=== PATIENT | female | born 1940 | race Caucasian/White ===

== ENCOUNTER 2016-11-16 00:26 | Inpatient (IN) | payer OTHER ==
[~2016-11-16] VITALS: Ht 154.9 cm; Wt 55.6 kg
[~2016-11-16 00:26] MED LIST: ABILIFY2 M1 PO; CEL20 PO; MECLIZINE HCL12.5 MG PO; METFORMIN HCL1000 MG PO; TOR10 PO
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
--- NOTE | 2016-11-16 00:57 | NUR ---
PT UNABLE TO PROVIDE URINE AT THIS TIME.
--- NOTE | 2016-11-16 01:04 | NUR ---
LAB AT BEDSIDE FOR LAB DRAW.
--- NOTE | 2016-11-16 01:13 | NUR ---
EKG IN PROGRESS AT BEDSIDE.
--- NOTE | 2016-11-16 01:23 | NUR ---
PT AAOX4, SPEAKING WITH ANOTHER PT. RESP EVEN AND UNLABORED. WILL CONTINUE TO MONITOR.
[2016-11-16 01:24] LABS: BASOPHIL % 0.2 % (0-2); PLATELET COUNT 243 x10^3mcL (130-400); RED CELL DISTRIBUTION WIDTH 13.2 % (11.5-14.5)
[2016-11-16 01:32] LABS: CARBON DIOXIDE 28.4 mmol/L (21-32); CHLORIDE SERUM 101 mmol/L (98-107); CREATININE SERUM 1.1 mg/dL (0.6-1.0); GLUCOSE SERUM 131 mg/dL (74-106); POTASSIUM SERUM 3.9 mmol/L (3.5-5.1); SODIUM SERUM 138 mmol/L (136-145)
--- NOTE | 2016-11-16 01:40 | NUR ---
PT REFUSED IV AND [address] HERRERA MADE AWARE.
[2016-11-16 01:42] LABS: ALBUMIN 3.6 g/dL (3.4-5.0); ALKALINE PHOSPHATASE 84 U/L (46-116); ALT/SGPT 19 U/L (14-59); AST/SGOT 18 U/L (15-37); BILIRUBIN TOTAL 0.2 mg/dL (0.20-1.00); T4(THYROXINE) 6.3 ug/dL (4.7-13.3); TOTAL PROTEIN, SERUM 6.9 g/dL (6.4-8.2)
--- NOTE | 2016-11-16 01:44 | NUR ---
PT AMBULATED TO THE RESTROOM WITH URINE SPECIMEN CONTAINER.
--- NOTE | 2016-11-16 02:00 | NUR ---
GAVE REPORT TO THAD MICHEL TO ASSUME CARE.
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
[2016-11-16 02:17] VITALS: BP 186/85
[2016-11-16 02:25] LABS: microscopic required? YES; urine erythrocyte TRACE (NEGATIVE)
[2016-11-16 02:29] LABS: AMPHETAMINE QUAL UR NONE DETECTED (NEG <=1000)
--- NOTE | 2016-11-16 02:30 | NUR ---
DR LEAL AND MYSELF IN ROOM. DR LEAL ASSESSING PT. INFORMED HIM PT REFUSES IV ACCESS. DR LEAL ASKED PT IF WE CAN INSERT AN IV; PT SAID NOT AT THIS TIME.
[2016-11-16 02:45] VITALS: BP 168/68
[2016-11-16 02:54] LABS: CHOLESTEROL/HDL RATIO 2.6
[2016-11-16 03:14] VITALS: BP 166/75
--- NOTE | 2016-11-16 03:15 | NUR ---
PT NO C/O LUQ PAIN AT THIS TIME.
[2016-11-16] MEDS ORDERED: GLUCOPHAGE XR500 MG PO (03:34)
[2016-11-16] MEDS ORDERED: GLUCOTROL5 MG PO (03:37)
[2016-11-16] MEDS ORDERED: MEMANTINE HCL5 MG PO (03:37)
--- NOTE | 2016-11-16 04:08 | NUR ---
PT ALLOWING TO HAVE IV ACCESS. IV INITIATED IN THE LF WRIST, [address] GHOSH MADE AWARE. WILL CONTINUE TO MONITOR.
[2016-11-16] MEDS ORDERED: ARIPIPRAZOLE2 MG PO (04:29)
[2016-11-16] MEDS ORDERED: MECLIZINE HYD12.5 MG PO (04:30)
--- NOTE | 2016-11-16 04:44 | NUR ---
PT SLEEPING. NO DISTRESS NOTED. WILL CONTINUE TO MONITOR.
[2016-11-16 05:15] VITALS: BP 158/80
--- NOTE | 2016-11-16 06:46 | NUR ---
PT AWAKE. NO DISTRESS NOTED. PT WORRIED ABOUT WHERE HER SON IS. WILL CONTINUE TO MONITOR.
--- NOTE | 2016-11-16 08:00 | NUR ---
ALERT AND ORIENTED. VERY FORGETFUL. WORRIED ABOUT HER SON TALI. BREATHING FREELY ON RA. TELE # 33 NSR. NS INFUSING 100 CC TO RT WRIST. PT IS NOT ON SCD'S SHE GETS UP OUT OF BED FREQUENTLY WITHOUT CALLING FOR ASSIST. BED ALARM ON. FALL RISK. DENIES PAIN AT THIS TIME. CALL LIGHT WITHIN REACH.
[2016-11-16 16:33] VITALS: BP 143/87; BP 177/93
--- NOTE | 2016-11-16 16:43 | NUR ---
INFORMED DR. PHILLIPS RE: BP 177/93. WILL CONTINUE TO MONITOR.
--- NOTE | 2016-11-16 18:21 | NUR ---
PT SEEN BY DR. ALLEN. PT IS GRAVELY DISABLED AND UNABLE TO TAKE CARE OF HERSELF. SS WILL LOOK FOR PLACEMENT. PT HAS BEEN WANTING TO GO HOME ALL DAY. HER SON CALLED HER WHICH MADE HER FEEL MUCH BETTER. SHE IS MUCH MORE RELAXED. IV HL'D. INDEPENDENT W ADL'S. BREATHING FREELY ON RA. CONTINUES ON CIPRO PO.
--- NOTE | 2016-11-16 19:30 | NUR ---
PT SITTING UP IN BED, A/O X2. PT IS FORGETFUL AND MAY BE CONFUSED AT TIMES. ON TELE #33, NSR, DENIES CHEST PAIN. PULSES PALPABLE, NO EDEMA NOTED. LUNG SOUNDS CTA, BREATHING FREELY ON RA, DENIES SOB. BOWEL SOUNDS ACTIVE, PT REPORTS LAST BM WAS TODAY, REGULAR. PT DENIES PAIN UPON URINATION. PT HAS GENERALIZED WEAKNESS. SKIN IS INTACT, ECCHYMOSIS NOTED TO RUE AND LEFT THIGH. PT DENIES PAIN AT THIS TIME. SALINE LOCK TO LEFT WRIST, PATENT AND INTACT. BED IN LOWEST SETTING, SIDE RAILS UP X2, CALL LIGHT WITHIN REACH. WILL CONTINUE TO MONITOR.
[2016-11-16 22:05] VITALS: BP 169/80
[2016-11-17 00:47] VITALS: BP 154/77
[2016-11-17 05:52] VITALS: BP 148/76
--- NOTE | 2016-11-17 07:05 | NUR ---
PT SLEPT AT INTERVALS THROUGHOUT THE NIGHT AND HAD MULTIPLE EPISODES OF FORGETFULNESS AND CONFUSION. PT DENIES PAIN OR SOB AT THIS TIME. SALINE LOCK TO LEFT WRIST, PATENT AND INTACT. WILL ENDORSE CARE TO AM NURSE.
--- NOTE | 2016-11-17 08:00 | NUR ---
ALERT AND ORIENTED X 2. LUNG SOUNDS CLEAR, BREATHING FREELY ON RA,. SL TO LEFT WRIST PATENT. TELE # 33 NSR. POOR APPETITE WITH BREAKFAST. SAID SHE WAS HAVING NAUSEA. WHEN OFFERED MED FOR NAUSEA SHE DENIED HAVING ANY NAUSEA. DENIES ANY PAIN. EXPRESSES DESIRE TO GO HOME. CALL LIGHT WITHIN REACH.
--- NOTE | 2016-11-17 08:30 | NUR ---
PTS SON EKATERINA AND DTR IN LAW CAME TO CK ON PT. EKATERINA DID NOT GO IN TO SEE PT DTR IN LAW FERNANDA DID GO IN FOR A VISIT.
[2016-11-17 09:24] VITALS: BP 154/73
--- NOTE | 2016-11-17 09:59 | NUR ---
PTS SONS OLDEST EKATERINA MILLER-[phone], ADRI KARINA-[phone],YOUNGEST TALI KARINA [phone].
--- NOTE | 2016-11-17 10:00 | NUR ---
TALI PTS YOUNGEST SON CAME TO VISIT WITH PT.
[2016-11-17 14:41] VITALS: BP 157/61
[2016-11-17 16:30] VITALS: BP 168/83
--- NOTE | 2016-11-17 19:00 | NUR ---
REMAINS VERY CONFUSED. SANDY CESAR SPENT ALOT OF TIME WITH PT TODAY. NEW ORDER FOR NORVAS TO START IN AM FOR HTN. NO C/O PAIN OTHER THAN H/A TODAY. SL TO LFT WRIST. SUPERVISION ONLY WITH ACTIVITIES AND BRP. COOPERATIVE WITH CARE. CALL LIGHT WITHIN REACH.
--- NOTE | 2016-11-17 19:45 | NUR ---
RECEIVED REPORT FROM AM NURSE. PT A/O X2 AND CONTINUES TO HAVE EPISODES OF CONFUSION AND FORGETFULNESS. TELE #33, NSR, DENIES CP. PULSES PALPABLE, NO EDEMA NOTED. SCDs AT BEDSIDE. LUNGS SOUNDS CTA, BREATHING FREELY ON RA, DENIES SOB. PT REPORTS LAST BM-11/17/16, FORMED. PT DENIES N/V. BRP, VOIDS FREELY, DENIES PAIN UPON URINATION. GENERALIZED WEAKNESS. SKIN IS INTACT WITH ECCHYMOSIS NOTED TO RUE AND LEFT THIGH. SALINE LOCK TO LEFT WRIST, INTACT AND FLUSHES WELL. PT DENIES PAIN AT THIS TIME. BED IN LOWEST, SIDE RAILS UP X2. BED ALARM ON. CALL LIGHT PLACED WITHIN REACH. WILL CONTINUE TO MONITOR.
[2016-11-17 21:04] VITALS: BP 155/83
--- NOTE | 2016-11-18 01:24 | NUR ---
PT IS NOW MED-SURG. RETURNED TELE #33 TO CHILD DEVELOPMENT INSTRUCTOR. ASSISTED PT TO AND FROM BATHROOM. PT DENIES ANY PAIN OR SOB AT THIS TIME. WILL CONTINUE TO MONITOR.
[2016-11-18 06:36] LABS: BASOPHIL % 0.3 % (0-2); PLATELET COUNT 227 x10^3mcL (130-400); RED CELL DISTRIBUTION WIDTH 12.8 % (11.5-14.5)
[2016-11-18 06:55] LABS: CALCIUM 9.3 mg/dL (8.5-10.1); CARBON DIOXIDE 27.3 mmol/L (21-32); CHLORIDE SERUM 102 mmol/L (98-107); GLUCOSE SERUM 135 mg/dL (74-106); POTASSIUM SERUM 4.4 mmol/L (3.5-5.1); SODIUM SERUM 138 mmol/L (136-145)
--- NOTE | 2016-11-18 07:05 | NUR ---
PT SLEPT WELL THROUGHOUT THE NIGHT. NO SIGNS OF DISTRESS NOTED. PT HAD NO COMPLAINTS OF PAIN. ALL NEEDS MET. CARE ENDORSED TO AM NURSE.
--- NOTE | 2016-11-18 08:00 | NUR ---
ALERT AND ORIENTED TO SELF AND PLACE. VERY FORGETFUL AND CONFUSED. INDEPENDENT WITH BRP. GETS UP FREQUENTLY TO BR AND WALKS AROUND ROOM.SL TO LEFT WRIST PATENT. APPETITE VARIES. CALM,PLEASANT. COOPERATIVE WITH CARE. COMBING OUT HER HAIR. CALL LIGHT WITHIN REACH.
[2016-11-18 09:19] VITALS: BP 161/82
--- NOTE | 2016-11-18 13:10 | NUR ---
DTR IN LAW FERNANDA [phone], DTR ELVIS [phone].
[2016-11-18 17:37] VITALS: BP 134/74
--- NOTE | 2016-11-18 18:52 | NUR ---
ALERT AND ORIENTED. CONTINUES TO BE CONFUSED AND FORGETFUL. FAMILY CAME TO VISIT. INDEPENDENT W ADL'S. CONTINUES ON CIPRO PO. STARTED ON NORVASC. WAITING FOR ASSISTED LIVING PLACEMENT FOR PT.
--- NOTE | 2016-11-18 19:30 | NUR ---
PT A/O X2, WITH EPISODES OF CONFUSION AND FORGETFULNESS. MED-SURG, NO TELE. PULSES PALPABLE, NO EDEMA. LUNG SOUNDS CTA, DENIES SOB, BREATHING ON RA. ABD SOFT AND FLAT, PT REPORTS LAST BM WAS TODAY. BRP WITHOUT ASSIST. PT IS AMBULATORY WITH STEADY GAIT. DENIES PAIN, ADMITS TO SOME NAUSEA, BUT DECLINES MEDICAITONS AT THIS TME. SALINE LOCK TO LEFT WRIST IS PATENT AND INTACT. BED IN LOWEST SETTING, SIDE RAILS UP X2, CALL LIGHT WITHIN REACH. WILL CONTINUE TO MONITOR.
[2016-11-18 22:14] VITALS: BP 150/74
[2016-11-19 06:15] VITALS: BP 131/71
--- NOTE | 2016-11-19 06:21 | NUR ---
PT SLEPT VERY WELL THROUGHOUT THE NIGHT. NO RESPIRATORY DISTRESS NOTED, NO SIGNS OF PAIN OBSERVED. ALL NEEDS MET. SALINE LOCK TO LEFT WRIST, PATENT AND INTACT. WILL ENDORSE CARE TO AM NURSE.
[2016-11-19 08:00] VITALS: BP 143/87
--- NOTE | 2016-11-19 08:00 | NUR ---
RECIEVED PATIENT ALERT AND ORIENTED TIMES TWO. PATIENT IS A LITTLE CONFUSED AND HAS REFUSED SOME OF HER MEDICATIONS OFFERED. PATIENT HAS CLEAR BREATH SOUNDS AND IS FULLY AMBULATORY. THE IV IS DISCONNECTED AND SHE REFUSED THE VITAMINS, ALZHIEMERS MEDICATION AND THE AMBILIFY. SHE STATES SHE BELIEVES IT MAKES HER SICK. VITALS AT THIS TIME AT 98.7, 81, 16, 143/87, 96%. PATIENTS BLOOD SUGAR THIS AM AT 135, AND TERRY JIMENEZ NOTED LABS OF PTT AT 47.5, AIC AT 6.6, AND UA WITH MANY BACTERIA. INOCENCIO TAHS OZZIE OF PYLONEPHRITIS, ANEMIA, DYLIPIDEMIA A, HTNM AND DMOOC. PATIENT FAMILY IS UNABLE TO CARE FOR HER AND A PLN FOR DISCHARGFE OT ASSISTED LIVING IS IN PLACE. PATIENT AHS TOLERATE THE RGULAR DIET AND HAS BEEN ON THE PHONE ALL MORNING. SHE WANTS TO GO HOME.
--- NOTE | 2016-11-19 12:05 | NUR ---
PATIENT SEEN BY THE INTERNS AND ADVSIED THE PATIENT IS REFUSING SOME OF HER MEDICAIONS. DR ARE AWARE SHE HAS REFUSED MEDICATION PREVIOULY AND THE FAMUILY ARE CONCERNED SHE IS A DENGER TO BE ON HER OWN. AWAITING ANY ARRANGEMENT PLANS AT THIS TIME.
--- NOTE | 2016-11-19 12:16 | NUR ---
PATIENT IS WITH 163 BLOOD SUGAR AT THIS TIME. GAVE 3 UNITS OF REGULAR ORDERED.
[2016-11-19 14:00] VITALS: BP 166/95
--- NOTE | 2016-11-19 14:31 | NUR ---
PATIENT HAS MAKDE MULTIPLE ATTEMPTS TO CALL FAMILY BY PHONE. SHE IS ANXIOUS AND WANTS TO GO HOME. SHE IS STILL CONFUSED ABOUT PLAN OF CARE.
--- NOTE | 2016-11-19 15:41 | NUR ---
PATIENT GIVEN ATIVAN FOR ANXIETY. PATIENT GIVEN CIPRO BUT PATIENT PALMED IT AND ENCOURAGED TO TAKE THE MEDICAIONS.
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
[2016-11-19 18:10] VITALS: BP 149/99
--- NOTE | 2016-11-19 19:37 | NUR ---
RECIVED PATIENT IN BED AWAKE,ALERT, CONFUSED AND FORGETFUL WITH NO SIGN OF ACUTE DISTRESS NOTED. MED SURG PATIENT REFUSED IV AND SCD AND MOST OF HER MEDICATION, MD AWARE PER AM RN. BREATHING EASYA ND NONLABOR. IV HEPLOCK TO LEFT WRIST. WILL CONTINUE TO MONITOR.
[2016-11-19 21:03] VITALS: BP 155/92
--- NOTE | 2016-11-20 01:36 | NUR ---
SLEEPING THIS TIME WITH NO SIGN OF DISTRESS NOTED, BREATHING EASY AND NON LABOR. WILL CONTINUE TO MONITOR.
--- NOTE | 2016-11-20 05:02 | NUR ---
SLEPT AT LONG INTERVALS DENIES PAIN AND DISCOMFORT THE ENTIRE SHIFT. CHECKED AT INTERVALS FOR NEEDS AND SAFETY.
[2016-11-20 05:36] VITALS: BP 147/69
--- NOTE | 2016-11-20 07:15 | NUR ---
PT REST ON BED, ALERT, ORINED X 2. PT BREATHING ON RA, EVEN, UNLABORED. IV SITE SALINE LOCK AT THIS TIME.
[2016-11-20 07:50] VITALS: BP 144/83
--- NOTE | 2016-11-20 15:14 | NUR ---
Initial Nutrition Assessment Dx: Metabolic Encephalopathy, Dementia, UTI PMHx: Type 2 DM, HTN, dementia PSHx: Cholecystectomy Labs: (11/18) WBC 4.4 L, BG 135 H; (11/16) A1C 6.6 H Meds: Cipro, Colace, D10, folic acid, Glucophage, Glucotrol, humulin R, protonix, vitamin B1, NS IV, zofran Current Diet Order: CCHO-60 gm PO Intakes: (11/20) B: 0% (Pt refused); (11/18) B: 20%, L: 85%; (11/17) B: 20% Ht: 61", 5' 1". Wt: 5.17 lb, 2.35 kg - Likely Error Weight as reported per RN/CAN (Weighed pt on bedscale): 123 lb, 56 kg. BMI: 23.2 kg/m2 (Normal) IBW: 105 lb, 48 kg. %IBW: 117%. UBW: Pt unable to recall Age: 76 Y/O F Food Allergies: Skin: Ecchymosis RUE, L thigh. Jordan 20. Edema: None GI: Active bowel sounds. Last BM 11/18. Pt found with metabolic encephalopathy secondary to Alzheimer's dementia exacerbation vs pyelonephritis per doctor's notes. Per doctor's progress note 11/19, per nursing, pt was calm overnight, pending placement for detention care, family actively looking for site, however, refuses to take pt home, case management actively assisting. Pt confused at times, forgetful, anxious per nursing notes. Pt was not in bed during RD visit, found in hallways. Pt was moved to another room 205-A. Pt reported no nausea today, eating "okay". RD offered snacks in between meals, pt declined, stated she is fine, however, in the end agreeable to half a roast beef sandwich now. Per RN, stated that pt did not eat much due to complain of nausea, however, refusing to take nausea medications. RD notified RN regarding weight error, RN provided correct weight. Problem with: N: None. V: None. D: None. C: None. Problems with: Chewing: None. Swallowing: None. Current Appetite: Fair to Poor Recent Weight Change: Pt reports some weight loss, however, unable to recall. % Weight Change: N/A Vitamin/Supplement use: None Diet at Home: Regular Physical Activity: None Education: Not appropriate for education due to forgetfulness and confusion Estimated Nutritional Needs Based CBW 123 lb, 56 kg. Energy: 4876-2070 kcal/day (25-30 kcal/kg for Maintenance) Protein: 56 gm/day (1 gm/kg for Maintenance) Fluids: 1680 ml/day (30 ml/kg for Maintenance) or per doctor Nutrition Diagnosis Inadequate oral intakes related to psychological causes secondary to Alzheimer's dementia as evidenced by fair to poor PO intakes 0-85% x4 meals, average 31% Intervention 1. Continue CCHO-60 gm diet per doctor. 2. Encourage PO intakes during meals. Monitor/Evaluate Goal: PO intakes to meet at least 50-75% of estimated needs Monitor: PO intakes/tolerance, labs, skin integrity, GI function, weights F/U in 3-5 days as MODERATE risk (11/23-11/25)
--- NOTE | 2016-11-20 16:37 | NUR ---
PT'S SON AT BED SIDE TALKED TO DR. RDZ AND CASE MANAGE.
[2016-11-20 18:13] VITALS: BP 149/71
--- NOTE | 2016-11-20 19:13 | NUR ---
PT IS VERY ANXIOUS, ANTIVAN GIVEN. PT NO COMPLAIN OF PAIN AT THIS TIME. PT PRESENTED VERY FORGETFUL THOUGH DAY. PT BREATHING ON RA, EVEN, UNLABORED. IV SITE PATENT, INTACT. REMAIN SALINE LOCK AT THIS TIME.
--- NOTE | 2016-11-20 19:53 | NUR ---
RECEIVED PATIENT SITTING ON BEDSIDE AWAKE, ALERT, FORGETFUL WITH PERIODS OF CONFUSION. NO SIGN OF ACUTE DISTRESS NOTED. IV TO LEFT WRIST HEPLOCK, PREVIOUSLY REFUSED IV AND SOME OF HER PO MEDS AWARE. WILL CONTINUE TO MONITOR. CALL LIGHT WITHIN REACH.
[2016-11-20 22:36] VITALS: BP 187/77
--- NOTE | 2016-11-20 23:42 | NUR ---
SLEEPING THIS TIME BREATHING EASYA ND NONLABOR. WILL CONTINUE TO MONITOR.
--- NOTE | 2016-11-21 05:07 | NUR ---
SLEPT AT LONG INTERVALS, DENIES PAIN AND DISCOMFORT THE ENTIRE SHIFT, ALL NEEDS ATTENDED.
[2016-11-21 06:23] VITALS: BP 134/87
--- NOTE | 2016-11-21 08:45 | NUR ---
PT ALERT AND ORIENTED X2, CONFUSED. S1 AND S2 HEARD ON AUSCULTATION. PULSES PRESENT, NO EDEMA NOTED, CAP REFILL <3 SEC. LUNG SOUNDS CLEAR, BREATHING UNLABORED. BOWEL SOUNDS ACTIVE, LBM 11/21/16. REPORTS NO PROBLEMS VOIDING. AMBULATES TO RSTROOM. SKIN DRY AND INTACT, BRUISING NOTED TO RUE AND L. THIGH. REPORTS NO PAIN AT THIS TIME. IV SITE CLEAR AND INTACT.
[2016-11-21 09:05] VITALS: BP 149/78
--- NOTE | 2016-11-21 10:29 | NUR ---
JORDAN IN LAW AT BED SIDE, DAUGHTER IN LAW REPORTED PATIENT IS NOT HER USUAL SELF, THINKS THAT EVERYONE IS OUT TO GET HER.
--- NOTE | 2016-11-21 13:43 | NUR ---
PT RESTING IN BED NO SIGNS OF DISTRESS CALL LIGHT IN REACH WILL CONTINUE TO MONITOR.
--- NOTE | 2016-11-21 13:47 | NUR ---
REPORTED H/A 10/13. GIVEN TYLENOL. PATIENT CALM AND NO DISTRESS NOTED.
--- NOTE | 2016-11-21 16:21 | NUR ---
PT CRYING IN ROOM, STATED SHE IS TRYING TO TALK TO HER SON BUT CANNOT REACH HIM. HAS CALLED HIM A FEW TIMES WITH NO ANSWER. STATED SHE WANTS TO TALK TO HER SON BECAUSE SHE IS GOING THROUGH A HARD TIME RIGHT NOW.
--- NOTE | 2016-11-21 18:11 | NUR ---
PT SITTING UP IN BED, FAMILY AT BEDISDE. NO SIGNS OF DISTRESS. CALL LIGHT IN REACH WILL CONTINUE TO MONITOR.
--- NOTE | 2016-11-21 20:01 | NUR ---
PT ALERT AND AWAKE. AOX2. VERBAL WITH CLEAR SPEECH. NO S/S OF RESPIRATORY DISTRESS NOTED. LUNGS CLEAR BILATERALLY. ABDOMEN SOFT AND FLAT. BOWEL SOUNDS ACTIVE. SKIN WARM AND DRY. NO EDEMA NOTED. PULSES PALPABLE. DENIES ANY PAIN. DENIES ANY BURNING WITH URINATION. NO S/S OF DISTRESS NOTED. RESTING COMFORTABLY WITH RELAXED FACIAL FEATURES. CALL LIGHT WITHIN REACH. WILL CONTINUE TO MONITOR.
--- NOTE | 2016-11-21 20:45 | NUR ---
PT REFUSED NEW IV REINSERTION. STATES, "I DON'T NEED IT." NO S/S OF DISTRESS OR DISCOMFORT NOTED AT THIS TIME. RECEIVED ROUTINE MEDICATIONS AND SWALLOWED WITHOUT DIFFICULTY. RESTING WITH RELAXED FACIAL FEATURES. CALL LIGHT WITHIN REACH. WILL CONTINUE TO MONITOR. DR. HGOSH NOTIFIED AND AWARE PT'S REFUSAL OF IV REINSERT AND IV FLUIDS.
[2016-11-21 21:56] VITALS: BP 166/84
--- NOTE | 2016-11-22 00:19 | NUR ---
PT RESTING IN BED WITH EYES CLOSED. BREATHING EQUAL AND UNLABORED. NO S/S OF RESPIRATORY DISTRESS NOTED. RESTING COMFORTABLY WITH RELAXED FACIAL FEATURES. CALL LIGHT WITHIN REACH. WILL CONTINUE TO MONITOR.
[2016-11-22 05:59] VITALS: BP 123/67
--- NOTE | 2016-11-22 07:30 | NUR ---
PT AO X2 ORIENTED TO PERSON AND , PT APREHENSIVE WITH CARE, VERBALIZING PARANOID THOUGHTS. EVEN UNLABORED RESPIRATIONS. BRP, STEADY GAIT. SKIN IS INTACT. DENIES PAIN AT THIS TIME. PT REFUSES IV. CALL LIGHT IN REACH WILL CONTINUE TO MONITOR.
[2016-11-22 10:30] VITALS: BP 127/70
--- NOTE | 2016-11-22 11:32 | NUR ---
PT RESTING IN BED WATCHING TV, EVEN UNLABORED RESPIRATIONS NO SIGNS OF DISTRESS CALL LIGHT IN REACH WILL CONTINUE TO MONITOR.
--- NOTE | 2016-11-22 12:25 | NUR ---
BLOODS SUGAR WAS 67 GAVE PT ORANGE JUICE WITH 2 SUGAR PACKETS AND CRACKERS, WILL ONTINUE TO MONITOR.
--- NOTE | 2016-11-22 14:03 | NUR ---
[facility]. PT IS AWAKE ALERT AND ORIENTED X3. NO SIGNS OF DISTRESS CALL LIGHT IN REACH. [facility] ONTINUE TO MONITOR.
[2016-11-22 17:16] VITALS: BP 142/70
--- NOTE | 2016-11-22 17:35 | NUR ---
PT RESTING IN BED NO SIGNS OF DISTRESS CALL LIGHT IN REACH. PTS MOOD APPROPRIATE TO SITUATION. WILL CONTINUE TO MONITOR.
--- NOTE | 2016-11-22 19:30 | NUR ---
PT AWAKE AND ALERT. AOX2. VERBAL WITH CLEAR SPEECH. NO S/S OF RESPIRATORY DISTRESS NOTED. LUNGS CLEAR BILATERALLY. BOWEL SOUNDS ACTIVE. ABD SOFT AND FLAT. SKIN WARM AND DRY. NO EDEMA NOTED. PULSES PALPABLE. DENIES ANY PAIN AT THIS TIME. DENIES ANY BURNING WITH URINATION. CALM AND COOPERATIVE AT THIS TIME. CALL LIGHT WITHIN REACH. WILL CONTINUE TO MONITOR.
[2016-11-22 20:48] VITALS: BP 110/90; BP 153/86
--- NOTE | 2016-11-23 00:45 | NUR ---
PT RESTING IN BED WITH EYES CLOSED. NO S/S OF RESPIRATORY DISTRESS NOTED. BREATHING EQUAL AND UNLABORED. NO S/S OF DISTRESS OR DISCOMFORT NOTED. CALL LIGHT WITHIN REACH. WILL CONTINUE TO MONITOR.
[2016-11-23 05:10] VITALS: BP 150/79
--- NOTE | 2016-11-23 07:15 | NUR ---
RECEIVED PT IN BED, A/A/O X 1 (PERSON, UNABLE TO REMEMBER ACTUAL LOCATION, VERY FORGETFUL). PT DENIES PAIN OF ANY SORT AT THIS TIME. BILATERAL RADIAL AND PEDAL PULSES PRESENT, NO EDEMA. BILATERAL UPPER AND LOWER LUNG SOUNDS CLEAR, CHEST RISING EVENLY, NO RESPIRATORY DISTRESS. 02 SAT 96% ON R/A. BOWEL SOUNDS NORMOACTIVE ON ALL 4 QUADS, ABD FLAT, SOFT, NON-TENDER. LAST BM 11/22/16. VOIDS FREELY. NO GAIT OR BALANCE IMPAIRMENT UPON AMBULATION. INTACT ECCHYMOSIS ON RUE AND LEFT THIGH. PT DOES NOT HAVE ANY IV LINES PRESENT. BILATERAL SIDE RAILS UP, BED IN LOW POSITION, CALL LIGHT WITHIN REACH. WILL CONTINUE TO MONITOR.
--- NOTE | 2016-11-23 08:02 | NUR ---
DR MARTINEZ, RESIDENTS, CHARGE NURSE, AND ASSIGNED NURSE CAME IN TO SEE PT; DISCUSSED CARE PLAN WITH RESIDENT; ALL QUESTIONS WERE ANSWERED; PT VERBALIZED UNDERSTANDING.
[2016-11-23 09:00] VITALS: BP 123/74
--- NOTE | 2016-11-23 09:50 | NUR ---
PT WAS GIVEN HER PO MEDS. PT IS VERY SUSPICIOUS TO WHAT MEDICATIONS SHE IS RECEIVING. GAVE HER A LIST OF HER MEDICATIONS AT TIME OF ADMINISTRATION, OPENED PACKAGES IN FRONT OF HER. BEFORE TAKING, SHE PAUSES, AND ASKS WHAT THEY ARE AGAIN. LATER ON, STATES THAT SHE WANTS TO SPEAK TO A DOOR CLAMPER INSTEAD TO HAVE MEDS CONFIRMED. THAD WOODY, CAME IN TO TALK TO HER AND CONFIRM THE MEDICATIONS. SHE THEN TOOK IT BY MOUTH, NO DYSPHAGIA NOTED. WILL CONTINUE TO MONITOR.
[2016-11-23 11:29] VITALS: BP 156/80
[2016-11-23 17:15] VITALS: BP 162/86
--- NOTE | 2016-11-23 17:26 | NUR ---
DR GOODRICH PAGED RE: PT'S ELEVATED BP. PT ASYMPTOMATIC AT THIS TIME, STATES THAT SHE FEELS ANXIOUS. INSTRUCTED PT TO LAY DOWN AND REST FOR NOW. LAST BP 162/86, MAP 97. AWAITING ORDER FROM . WILL CONTINUE TO MONITOR.
--- NOTE | 2016-11-23 18:27 | NUR ---
PT RESTING COMFORTABLY ON HER BED, WATCHING TV. NO RESPIRATORY DISTRESS, PAIN, OR DISCOMFORT. SIDE RAILS UP X 2, BED IN LOW POSITION, CALL LIGHT WITHIN REACH. WILL ENDORSE TO NOC SHIFT.
--- NOTE | 2016-11-23 18:48 | NUR ---
PT STATES THAT SHE FEELS ANXIOUS. PT GIVEN ATIVAN 0.5MG PO. WILL CONTINUE TO MONITOR.
--- NOTE | 2016-11-23 21:31 | NUR ---
Awake and verbally responsive. No resp.distress noted on room air. Denies pain at this time. Out of bed and ambulating inside the room, fixing the bed and looking out at the door. Very suspicious of the nursing staff and the meds she's taking. Approached in a calm and unhurried manner and explained the purpose of the meds she's taking. Due meds given and taken. Accucheck done. Will cont.to monitor. Call light kept within reach.
[2016-11-23 21:44] VITALS: BP 147/86
--- NOTE | 2016-11-24 04:00 | NUR ---
Afebrile. No significant change in condition noted. Denies pain. Slept well. In no apparent distress.
[2016-11-24 05:54] VITALS: BP 122/76
--- NOTE | 2016-11-24 07:40 | NUR ---
RECEIVED PT IN BED, A/A/O X 2 (PERSON, GENERAL PLACE). PT IS VERY FORGETFUL. BILATERAL RADIAL AND PEDAL PULSES PRESENT, NO EDEMA, CAP REFILL < 3 SECS. PT ON ROOM AIR, O2 SAT 98%. BILATERAL UPPER AND LOWER LUNGS CLEAR, CHEST RISING EVENLY. ABD FLAT, SOFT, NONTENDER. NORMOACTIVE BOWEL SOUNDS X 4 QUADS. VOIDS FREELY. AMBULATES WITHOUT GAIT OR BALANCE IMPAIRMENT. HAS ECCHYMOSIS TO RUE. DENIES PAIN AT THIS TIME. PT DOES NOT HAVE ANY IV SITE (REFUSED). PT REMAINS SUSPICIOUS OF ANYTHING OFFERED TO HER, SUCH HER FOOD, ANY PROCEDURE OR MEDICATION. SIDE RAILS UP X 2, BED IN LOW POSITION, CALL LIGHT WITHIN REACH. WILL CONTINUE TO MONITOR.
--- NOTE | 2016-11-24 08:50 | NUR ---
DR BLAIR, RESIDENTS, CHARGE NURSE, AND ASSIGNED NURSE CAME IN TO SEE PT; SON BY BEDSIDE; MD DISCUSSED CARE PLAN WITH PT; PT VERBALIZED UNDERSTANDING.
[2016-11-24 09:31] VITALS: BP 127/67
[2016-11-24 10:54] VITALS: Ht 154.9 cm; Wt 55.6 kg
--- NOTE | 2016-11-24 11:54 | NUR ---
PT'S RBS = 63; PT STATES SHE FEELS "NERVOUS". PT WAS GIVEN OJ AND JELLO FOR SNACK. REPORTED TO DR GOODRICH; STATED THAT HE WILL MAKE ADJUSTMENTS TO PT'S MEDICATIONS, AND TO RECHECK BS IN 1 HOUR.
--- NOTE | 2016-11-24 12:00 | NUR ---
PT SITTING BY FOOT OF THE BED, TALKING TO HER DAUGHTER BY BEDSIDE. NO RESPIRATORY DISTRESS, PAIN, OR DISCOMFORT. BED IN LOW POSITION, CALL LIGHT WITHIN REACH. WILL CONTINUE TO MONITOR.
--- NOTE | 2016-11-24 12:15 | NUR ---
RECHECK BLOOD SUGAR NOW 75MG. PT REPORTS "FEELS BETTER, WAS REALLY HUNGRY." REVIEWED IMPORTANCE OF EATING AT MEAL TIME TO PREVENT HYPOGLYCEMIC REACTION. VERBALIZED UNDERSTANDING BUT NEEDS FREQUENT REINFORCEMENT. FAMILY AT BEDSIDE. AMBULATES WELL.
[2016-11-24 17:20] VITALS: BP 154/79
--- NOTE | 2016-11-24 18:16 | NUR ---
PT ON EDGE OF HER BED, SITTING, PUTTING HER MAKE UP ON. A/A/O X 2 (PERSON, GENERAL PLACE). NO RESPIRATORY DISTRESS, PAIN, OR DISCOMFORT. BED IN LOW POSITION. CALL LIGHT WITHIN REACH. WILL ENDORSE TO NOC SHIFT.
--- NOTE | 2016-11-24 19:25 | NUR ---
RECEIVED PATIENT SITTING AT BEDSIDE AWAKE, ALERT WITH NO SIGN OF ACUTE DISTRESS NOTED. MED SURG PATIENT . CLEAR BS TO AUSCULTATION SATTING AT 98% RA. IV HEPLOCK. WILL CONTINUE TO MONITOR. CALL LIGHT WITHIN REACH.
[2016-11-24 21:27] VITALS: BP 138/72
--- NOTE | 2016-11-25 00:06 | NUR ---
SLEEPING THIS TIME, BREATHINGE ASY AND NONLABOR. WILL CONTINUE TO MONITOR.
--- NOTE | 2016-11-25 05:16 | NUR ---
SLEPT FAIRLY NO SIGN OF DISTRESS NOTED THE ENTIRE SHIFT, REMAINED CALM AND COOPERATIVE WITH CARE.
[2016-11-25 06:24] VITALS: BP 144/78
--- NOTE | 2016-11-25 07:35 | NUR ---
RECEIVED THE PATIENT AWAKE AND ORIENTED TO PERSON, PLACE AND WITH SOME FORGETFULNESS. THE PATIENT DENIED ANY SHORTNESS OF BREATH OR PAIN. NO IV ACCESS NOTED. PATIENT AMBULATED IN THE ROOM WITH SLOW BUT STEADY GAIT.
[2016-11-25 09:30] VITALS: BP 129/67
[2016-11-25 17:26] VITALS: BP 146/78
--- NOTE | 2016-11-25 18:47 | NUR ---
THE PATIENT AMBULATED WITH STEADY GAIT. PATIENT HAD EPISODES OF CONFUSION DURING THE SHIFT. ALSO, PATIENT C/O EPISODES OF ANXIETY; COMFORT HAS BEEN PROVIDED TO THE PATIENT.
--- NOTE | 2016-11-25 19:34 | NUR ---
RECEIVED PATIENT WATCHING TELEVISION WITH NO SIGN OF ACUTE DISTRESS. NO SIGN SIGN OF CONFUSION THIS TIME. BREATHING EASY AND NONLABOR. PATIENT REFUSED IV AND SOME OF HER DUE MEDICATION , MD AWARE. WILL CONTINUE TO MONITOR. CALL LIGHT WITHIN REACH.
[2016-11-25 20:23] VITALS: BP 128/81
--- NOTE | 2016-11-26 01:58 | NUR ---
SLEEPING WITH NO SIGN OF DISTRESS NOTED. BREATHING EASY AND NONLABOR.
--- NOTE | 2016-11-26 05:12 | NUR ---
SLEPT AT LONG INTERVALS DENIES PAINA ND DISCOMFORT THE ENTIRE SHIFT. ALL NEEDS ATTENDED.
[2016-11-26 05:25] VITALS: BP 149/75
--- NOTE | 2016-11-26 08:07 | NUR ---
PT IS A+OX2, FORGETFUL, DENIES PAIN, SOB, HEADACHE, AND NAUSEA, PULSES MODERATE AND EQUAL ROCAEL, NO EDEMA PRESENT, BOWEL SOUNDS ACTIVE, VOIDING, AMBULATORY, ECCHYMOSIS RUE, REFUSED IV AND FLUIDS.
[2016-11-26 09:00] VITALS: BP 135/74
--- NOTE | 2016-11-26 11:39 | NUR ---
Follow Up Nutrition Assessment Dx: Metabolic Encephalopathy, Dementia, UTI PMHx: Type 2 DM, HTN, dementia Labs: Noted no new labs; (11/18) WBC 4.4 L, BG 135 H; (11/16) A1C 6.6 H Meds: Colace, D10, Glucophage, Glucotrol, humulin R, protonix, NS IV, zofran Current Diet Order: CCHO-60 gm PO Intakes: (11/25) D: 80%; (11/25) B: 60%, L: 70%; (11/24) B: 50%, L: 80%, D: 90% -- Noted improvement since last RD visit Weights: (11/20) Bed Scale Wt: 123 lb, 56 kg Skin: Ecchymosis RUE. Jordan 22. Edema: None GI: Active bowel sounds. Last BM 11/24. Current Appetite: Good - Noted improvement since last RD visit. Problem with: N: None. V: None. D: None. C: None. Per doctor's progress note 11/25, no new labs, images, studies, no acute events overnight, still pending placement at an appropriate care facility, no update from CM yet; Pt with metabolic encephalopathy secondary to Alzheimer's dementia exacerbation. Noted pt is confused at times per nursing notes. RD met up with pt at bedside, pt reported good PO intakes, no issues. RD noted a bag of sugar-free cookies at bedside (95 kcal for 11 cookies). Pt inquired regarding cookies, RD stated okay to have cookies, however, educated pt on DM diet and outside foods, encouraged pt to fill out menus and request for snacks in between meals if needed, so that dietary staff can better honor pt's needs. Pt acknowledged and verbalizes understanding. Estimated Nutritional Needs Based CBW 123 lb, 56 kg. Energy: 4105-2403 kcal/day (25-30 kcal/kg for Maintenance) Protein: 56 gm/day (1 gm/kg for Maintenance) Fluids: 1680 ml/day (30 ml/kg for Maintenance) or per doctor Nutrition Diagnosis Inadequate oral intakes related to psychological causes secondary to Alzheimer's dementia as evidenced by fair to poor PO intakes 0-85% x4 meals, average 31% -- Improved, Good PO intakes 50-90% Intervention 1. Continue CCHO-60 gm diet per doctor. Monitor/Evaluate Goal: PO intakes to meet >75% of estimated needs Previous Goal: PO intakes to meet at least 50-75% of estimated needs - Met, improved Monitor: PO intakes/tolerance, labs, skin integrity, GI function, weights F/U in 7 days as LOW risk (12/03)
[2016-11-26 12:00] VITALS: BP 149/74
--- NOTE | 2016-11-26 12:02 | NUR ---
PT COMPLAINING OF ANXIETY, ATIVAN GIVEN.
--- NOTE | 2016-11-26 13:21 | NUR ---
PT AMBULATING IN ROOM, NO RESPIRATORY DISTRESS NOTED, DENIES PAIN, NAUSEA, SOB, AND HEADACHE, REQUESTING A DIFFERENT LUNCH TRAY.
--- NOTE | 2016-11-26 14:52 | NUR ---
PT RESTING IN BED, NO RESPIRATORY DISTRESS NOTED, DENIES PAIN, NAUSEA, SOB, AND HEADACHE.
--- NOTE | 2016-11-26 15:57 | NUR ---
PT RESTING IN BED, NO RESPIRATORY DISTRESS NOTED, DENIES PAIN, NAUSEA, SOB, AND HEADACHE.
--- NOTE | 2016-11-26 19:14 | NUR ---
DISCHARGE INSTRUCTIONS GIVEN TO PT AND PT'S SON AND [id number] INCLUDING MEDICAL FOLLOW-UP WITH PCP. PT AND PT'S FAMILY VERBALIZE UNDERSTANDING. PT TO BE WHEELED DOWN BY JAISON CROCKETT.
== END 2016-11-26 19:11 | disposition home or self-care (01) | DRG 42 ==
LOC: ED 00:26 → DU 01:34 → MU 01:34 → DU 01:34 → MU 11-18 02:31
PROVIDERS: Emergency Medicine; Student in an Organized Health Care Education/Training Program; ADMIT Family Medicine
DX: G30.9 Alzheimer's disease, unspecified (principal); N17.0 Acute kidney failure with tubular necrosis; G93.41 Metabolic encephalopathy; E11.51 Type 2 diabetes mellitus with diabetic peripheral angiopathy without gangrene; D68.69 Other thrombophilia; E11.59 Type 2 diabetes mellitus with other circulatory complications; F02.80 Dementia in other diseases classified elsewhere, unspecified severity, without behavioral disturbance, psychotic disturbance, mood disturbance, and anxiety; E11.65 Type 2 diabetes mellitus with hyperglycemia; E86.0 Dehydration; I10 Essential (primary) hypertension; E03.9 Hypothyroidism, unspecified; D63.8 Anemia in other chronic diseases classified elsewhere; E78.5 Hyperlipidemia, unspecified; Z68.23 Body mass index [BMI] 23.0-23.9, adult; Z79.84 Long term (current) use of oral hypoglycemic drugs
CPT/HCPCS: 82962; 83880; C9113; G0480; J2405; J7030; J8597; Q0092

== ENCOUNTER 2016-12-05 17:50 | Observation (INO) | payer OTHER, MEDICAID ==
[~2016-12-05] VITALS: Ht 154.9 cm; Wt 62.2 kg
[~2016-12-05 17:50] MED LIST changes: +ARIPIPRAZOLE2 MG PO; +GLUCOPHAGE XR500 MG PO; +GLUCOTROL5 MG PO; +MECLIZINE HYD12.5 MG PO; +MEMANTINE HCL5 MG PO
[2016-12-05 18:35] LABS: UA SPECIFIC GRAVITY <=1.005 (1.005-1.035); microscopic required? YES; urine erythrocyte 1+ (NEGATIVE)
[2016-12-05 18:44] LABS: AMPHETAMINE QUAL UR NONE DETECTED (NEG <=1000)
[2016-12-05 19:00] LABS: BASOPHIL % 0.1 % (0-2); PLATELET COUNT 259 x10^3mcL (130-400); RED CELL DISTRIBUTION WIDTH 12.9 % (11.5-14.5)
--- NOTE | 2016-12-05 19:07 | NUR ---
PT MEDICATED PER MD ORDERS
[2016-12-05 19:11] LABS: CALCIUM 9.2 mg/dL (8.5-10.1); CARBON DIOXIDE 28.9 mmol/L (21-32); CHLORIDE SERUM 100 mmol/L (98-107); CREATININE SERUM 0.9 mg/dL (0.6-1.0); GLUCOSE SERUM 120 mg/dL (74-106); POTASSIUM SERUM 3.9 mmol/L (3.5-5.1); SODIUM SERUM 136 mmol/L (136-145)
--- NOTE | 2016-12-05 19:20 | NUR ---
REC'D CRITICAL LAB RESULT PTT, INFORMED PRIMARY NURSE SHARMIN
[2016-12-05 19:24] LABS: ALBUMIN 3.6 g/dL (3.4-5.0); ALKALINE PHOSPHATASE 97 U/L (46-116); ALT/SGPT 40 U/L (14-59); AMYLASE 76 U/L (25-115); AST/SGOT 22 U/L (15-37); BILIRUBIN TOTAL 0.3 mg/dL (0.20-1.00); CHOLESTEROL 175 mg/dL (<200); HDL CHOLESTEROL 64 mg/dL (40-60); LIPASE 222 IU/L (73-393); MAGNESIUM 1.8 mg/dL (1.8-2.4); T4(THYROXINE) 7.9 ug/dL (4.7-13.3); TOTAL PROTEIN, SERUM 7.1 g/dL (6.4-8.2)
--- NOTE | 2016-12-05 19:34 | NUR ---
RECEIVED PT FROM TRIAGE FOR DIZZINESS AND ETOH. PT IS SLOW TO ANSER QUESTION AND IS CONFUSED WHY SHE IS HERE. PT SHOWS NO SIGNS OF ACUTE DISTRESS. WILL CONTINUE TO MONITOR.
[2016-12-05 21:02] LABS: CHOLESTEROL/HDL RATIO 2.9; PHOSPHOROUS 3.8 mg/dL (2.5-4.9)
[2016-12-05 21:10] LABS: FREE T4 0.94 ng/dL (0.76-1.46); FREE THYROXINE INDEX 2.4 ug/dL (1.4-4.5); T3 TOTAL 0.86 ng/mL
--- NOTE | 2016-12-05 21:22 | NUR ---
REORT GIVEN TO THAD SALAZAR. ALL QUESTION AND CONCERNS ADDRESSED AT THIS TIME
--- NOTE | 2016-12-05 21:26 | NUR ---
RECEIVED PT FROM ED VIA FRANCESCO OSBORNE (PERSON, PLACE AND BIRTHDATE). ABLE TO FOLLOW SIMPLE COMMANDS. SPEECH IS CLEAR. NO SOB NOTED. DENIES CHEST PAIN/PRESSURE, NSR ON THE MONITOR. DENIES ABDOMINAL DISCOMFORT. IV SITE PATENT AND INTACT ON THE LAC. SIDE RAILS UPX2. CALL LIGHT ON REACH. ENDORSED
[2016-12-05 21:35] VITALS: BP 155/75
[2016-12-05 21:42] VITALS: Ht 154.9 cm; Wt 62.2 kg
[2016-12-06] VITALS (10 sets, daily range): BP systolic 114–172; BP diastolic 61–81
--- NOTE | 2016-12-06 06:33 | NUR ---
PT HAD A RESTING NIGHT AT THIS TIME AND WILL CONTINUE TO MONITOR.WILL CONTINUE TO MONITOR.
--- NOTE | 2016-12-06 07:45 | NUR ---
PATIENT AOX2, DENIES HEADACHE, SPEECH CLEAR, CONFUSED AT TIMES. TELE 20, DENIES CP. LUNGS CTA, NO RESP DISTRESS NOTED ON RA. BOWEL SOUNDS ACTIVE, DENIES ANY GI DISCOMFORT. SKIN INTACT. DENIES ANY PAIN. IV ACCESS TO LW, SITE WNL. CALL LIGHT WITHIN REACH.
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
--- NOTE | 2016-12-06 17:58 | NUR ---
PATIENT NOW REQUESTING MEDICATION FOR ANXIETY, ATIVAN GIVEN. WILL CONT TO MONITOR.
--- NOTE | 2016-12-06 18:40 | NUR ---
BP ELEVATED AND RECHECKED. DR TEMPLE PAGE GATED. PATIENT STATES FEELING ANXIOUS. WILL CONT TO MONITOR AND ENDORSE TO NOC NURSE.
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
--- NOTE | 2016-12-06 21:27 | NUR ---
SCHEDULED MEDS ADMINISTERED THIS TIME, PATIENT INFORMED ABOUT EACH MEDS ACTIONS AND PURPOSE PRIOR, TOOK MEDS WITHOUT DIFF.
--- NOTE | 2016-12-06 22:31 | NUR ---
DR STOCK INFORMED ABOUT PATIENT REFUSING IVF.
[2016-12-07] VITALS (7 sets, daily range): BP systolic 106–169; BP diastolic 61–86
--- NOTE | 2016-12-07 | NUR ---
ROUNDS MADE PATIENT SLEEPING AND RESTING QUIETLY THIS TIME, AWAKEN WHEN NAME CALLED. OFFERED NO COMPLAINTS. CALM AND COOPERATIVE. SAFETY/FALL PREC. MAINTAINED. BED ALARM ON. WILL CONTINUE TO MONITOR.
[2016-12-07 00:14] LABS: BASOPHIL % 0.3 % (0-2); PLATELET COUNT 212 x10^3mcL (130-400); RED CELL DISTRIBUTION WIDTH 13.3 % (11.5-14.5)
[2016-12-07 00:30] LABS: CARBON DIOXIDE 29.8 mmol/L (21-32); CHLORIDE SERUM 102 mmol/L (98-107); CREATININE SERUM 0.9 mg/dL (0.6-1.0); GLUCOSE SERUM 111 mg/dL (74-106); POTASSIUM SERUM 3.9 mmol/L (3.5-5.1); SODIUM SERUM 138 mmol/L (136-145)
--- NOTE | 2016-12-07 06:23 | NUR ---
PATIENT SLEPT OFF AND ON DURING THE SHITF, HAD BEEN WONDERING IN HALLWAY DURING THE SHIFT, RE DIRECTED BACK TO ROOM,CONFUSED AND DISORIENTED,PATIENT GET PARANOID AT TIMES. CONSTANTLT MONITOR. SAFETY/FALL PRECAUTION MAINTAINED. REFUSED IVF DR STOCK AWARE. HEPLOCK TO LEFT HAND PATENT AND INTACT.WILL ENDORSE CONTINUITY OF CARE TO INCOMING NURSE.
--- NOTE | 2016-12-07 07:15 | NUR ---
BEDSIDE REPORT AND INTRODUCTION PERFORMED WITH INCOMING NURSE ALEC.
[2016-12-07 07:22] LABS: BASOPHIL % 0.3 % (0-2); PLATELET COUNT 222 x10^3mcL (130-400); RED CELL DISTRIBUTION WIDTH 13.1 % (11.5-14.5)
[2016-12-07 07:37] LABS: CALCIUM 9.1 mg/dL (8.5-10.1); CARBON DIOXIDE 27.2 mmol/L (21-32); CHLORIDE SERUM 101 mmol/L (98-107); CREATININE SERUM 0.9 mg/dL (0.6-1.0); GLUCOSE SERUM 121 mg/dL (74-106); POTASSIUM SERUM 3.6 mmol/L (3.5-5.1); SODIUM SERUM 137 mmol/L (136-145)
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
--- NOTE | 2016-12-07 14:18 | NUR ---
PATIENT PER CHARGE HAS NOT YET BEEN SEEN BY PSYCHOLOGIST TODAY. PATIENT IS TO BE SEEN THOUGH DISCUSSED IN THE ROUNDS THIS AM. WILL ADVISE THE HOSPITAL INSURANCE CLERK INDICATED.
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
--- NOTE | 2016-12-07 19:43 | NUR ---
PATIENT RECEIVED IN BED AWAKE, ALERT AND ORIENTED TO NAME AND PLACE, CONFUSED OF PURPOSE OF HER HOSP STAY AND WHY SHE IS HERE, DISORIENTED AT TIMES, OCC ANSWERS QUESTIONS INAPPROPRIATELY, SPEECH CLEAR,MOOD TENSE AND ANXIOUS, 1;1 SITTER AT BEDSIDE FOR PATIENT SAFETY, OCC SEEN PACING INSIDE ROOM AND ALONG THE HALLWAY LOOKING CONFUSED AND DISORIENTED.NO RESP. DISTRESS, BREATHING EVEN AND UNLABORED,ON RA SAT 98%. DENIES CHEST PAINS, HR=78BPM, RHYTHM REGULAR, TELE#20, NSR. HEPLOCK TO LEFT HAND INTACT.LAST BM 8-07-20, PATIENT STATES APPETITE IS FAIR. SAFETY/FALL PRECAUTIONS MAINTAINED. WILL CONTINUE TO MONITOR.
--- NOTE | 2016-12-07 20:28 | NUR ---
ATIVAN 1 MG PO GIVEN FOR ANXIETY. PATIENT VERY APPRECIATIVE.
--- NOTE | 2016-12-07 22:06 | NUR ---
PATIENT CHECKED THIS TIME, SLEEPING BUT EASILY AWAKEN, DIAPHORETIC, BS CHECKED WAS 122, BR=[id number], HR=72, TEMP=99.2.
--- NOTE | 2016-12-07 22:27 | NUR ---
DR STOCK TALKED TO PATIENT REGARDING TRANSFER TO [facility].
--- NOTE | 2016-12-07 22:43 | NUR ---
CALLED KARINA MANZO TO INFORMED ABOUT PATIENT TO BE TRANSFERED TO [facility], REQUESTED TO TALK TO , GAVE PHONE NUMBER TO DR STOCK AND TALKED TO [place] AND PER DR STOCK THEY ARE AGREEABLE TO THE TRANSFER TO [facility].
--- NOTE | 2016-12-07 22:46 | NUR ---
DR STOCK ORDER ATIVAN 1 MG IX DOSE FOR ANXIETY AND APRESOLINE 10 MG FOR OF=113/77, HR=78. ORDER CARRIED OUT.
[2016-12-07] MEDS ORDERED: DIOVAN HCT1 TA3 PO (23:12)
--- NOTE | 2016-12-07 23:31 | NUR ---
REPORT GIVEN TO EMERSON-RN AT [facility], ALSO GIVEN REPORT TO RORO DURAN EMT/[facility]. PATIENT READY TO BE TRANSFERED WITH [facility]. TRANSPORTED VIA [facility] THIS TIME. PK=[id number], HR=72BPM.
== END 2016-12-07 23:35 | DRG 56 ==
LOC: ED 17:50 → DU 20:14
PROVIDERS: Emergency Medicine; ADMIT Family Medicine
DX: G30.9 Alzheimer's disease, unspecified (principal); N17.0 Acute kidney failure with tubular necrosis; G93.41 Metabolic encephalopathy; I16.1 Hypertensive emergency; F02.80 Dementia in other diseases classified elsewhere, unspecified severity, without behavioral disturbance, psychotic disturbance, mood disturbance, and anxiety; R31.9 Hematuria, unspecified; E11.65 Type 2 diabetes mellitus with hyperglycemia; D63.8 Anemia in other chronic diseases classified elsewhere; E78.5 Hyperlipidemia, unspecified; F10.20 Alcohol dependence, uncomplicated; F32.9 Major depressive disorder, single episode, unspecified; E66.3 Overweight; Z68.26 Body mass index [BMI] 26.0-26.9, adult; Z79.84 Long term (current) use of oral hypoglycemic drugs
CPT/HCPCS: 82962; 83880; 84439; G0378; G0480; J0360; J3411; J3475; J3490; J7030; Q0092

== ENCOUNTER 2017-04-21 14:28 | Emergency (ER) | payer OTHER, MEDICAID ==
[~2017-04-21] VITALS: Ht 160 cm; Wt 58.0 kg
[~2017-04-21 14:28] MED LIST changes: +DIOVAN HCT1 TA3 PO
[2017-04-21 17:09] LABS: UA SPECIFIC GRAVITY 1.025 (1.005-1.035); microscopic required? YES; urine erythrocyte 2+ (NEGATIVE)
[2017-04-21 18:01] VITALS: BP 138/68
== END 2017-04-21 18:01 | disposition home or self-care (01) ==
LOC: ED 14:28
PROVIDERS: Emergency Medicine
DX: N39.0 Urinary tract infection, site not specified (principal); J06.9 Acute upper respiratory infection, unspecified; I10 Essential (primary) hypertension; E11.9 Type 2 diabetes mellitus without complications; Z88.5 Allergy status to narcotic agent

== ENCOUNTER 2017-04-24 00:52 | Emergency (ER) | payer OTHER, MEDICAID ==
[~2017-04-24] VITALS: Ht 157.5 cm; Wt 61.2 kg
[2017-04-24 01:02] VITALS: Ht 157.5 cm; Wt 61.2 kg
[2017-04-24 03:18] LABS: BASOPHIL % 0.7 % (0-2); PLATELET COUNT 207 x10^3mcL (130-400); RED CELL DISTRIBUTION WIDTH 12.2 % (11.5-14.5)
[2017-04-24 03:23] LABS: CALCIUM 8.7 mg/dL (8.5-10.1); CARBON DIOXIDE 27.6 mmol/L (21-32); CHLORIDE SERUM 92 mmol/L (98-107); GLUCOSE SERUM 169 mg/dL (74-106); POTASSIUM SERUM 3.1 mmol/L (3.5-5.1); SODIUM SERUM 131 mmol/L (136-145)
[2017-04-24 03:28] LABS: ALBUMIN 3.4 g/dL (3.4-5.0); ALKALINE PHOSPHATASE 55 U/L (46-116); ALT/SGPT 21 U/L (14-59); AST/SGOT 29 U/L (15-37); BILIRUBIN TOTAL 0.44 mg/dL (0.20-1.00)
[2017-04-24 05:56] LABS: UA SPECIFIC GRAVITY >=1.030 (1.005-1.035); microscopic required? YES; urine erythrocyte NEGATIVE (NEGATIVE)
[2017-04-24 08:33] VITALS: BP 130/72
== END 2017-04-24 08:32 | disposition home or self-care (01) ==
LOC: ED 00:52
PROVIDERS: Emergency Medicine
DX: E87.6 Hypokalemia (principal); E11.9 Type 2 diabetes mellitus without complications; I10 Essential (primary) hypertension; Z88.5 Allergy status to narcotic agent
CPT/HCPCS: 36415; Q0162

== ENCOUNTER 2017-04-26 09:05 | Inpatient (IN) | payer OTHER, MEDICAID ==
[~2017-04-26] VITALS: Ht 157.5 cm; Wt 56.4 kg
[2017-04-26 09:16] VITALS: Ht 157.5 cm; Wt 56.4 kg
[2017-04-26 10:02] LABS: CALCIUM 8.9 mg/dL (8.5-10.1); CARBON DIOXIDE 26.3 mmol/L (21-32); CHLORIDE SERUM 90 mmol/L (98-107); CREATININE SERUM 0.9 mg/dL (0.6-1.0); GLUCOSE SERUM 129 mg/dL (74-106); POTASSIUM SERUM 4.3 mmol/L (3.5-5.1); SODIUM SERUM 128 mmol/L (136-145)
[2017-04-26 11:07] LABS: ALBUMIN 3.4 g/dL (3.4-5.0); BILIRUBIN DIRECT 0.24 mg/dL (0.0-0.2); BILIRUBIN TOTAL 0.69 mg/dL (0.20-1.00); TOTAL PROTEIN, SERUM 7.2 g/dL (6.4-8.2)
[2017-04-26 11:08] LABS: BASOPHIL % 0.4 % (0-2); PLATELET COUNT 177 x10^3mcL (130-400)
[2017-04-26 12:18] VITALS: BP 150/71
[2017-04-26 12:52] LABS: CHOLESTEROL/HDL RATIO 3.3; MAGNESIUM 1.6 mg/dL (1.8-2.4); PHOSPHOROUS 3.2 mg/dL (2.5-4.9)
[2017-04-26 13:15] LABS: T3 TOTAL 0.64 ng/mL
[2017-04-26 16:57] LABS: FREE T4 1.21 ng/dL (0.76-1.46); FREE THYROXINE INDEX 3.6 ug/dL (1.4-4.5); T4(THYROXINE) 10.3 ug/dL (4.7-13.3)
[2017-04-26 17:57] VITALS: BP 143/71
[2017-04-26 20:20] VITALS: BP 114/65
[2017-04-27 04:18] VITALS: BP 108/63
[2017-04-27 04:19] VITALS: BP 108/63
[2017-04-27 06:55] LABS: PLATELET COUNT 142 x10^3mcL (130-400); RED CELL DISTRIBUTION WIDTH 13.1 % (11.5-14.5)
[2017-04-27 07:14] LABS: CALCIUM 8.1 mg/dL (8.5-10.1); CARBON DIOXIDE 20.4 mmol/L (21-32); CHLORIDE SERUM 98 mmol/L (98-107); CREATININE SERUM 0.9 mg/dL (0.6-1.0); GLUCOSE SERUM 102 mg/dL (74-106); MAGNESIUM 1.7 mg/dL (1.8-2.4); PHOSPHOROUS 3.6 mg/dL (2.5-4.9); POTASSIUM SERUM 3.8 mmol/L (3.5-5.1); SODIUM SERUM 133 mmol/L (136-145)
[2017-04-27 09:19] LABS: BAND NEUTROPHIL 2 % (0-10); BASOPHIL 0 % (0-2); MONOCYTE 8 % (0-7); SEGMENTED NEUTROPHILS 64 % (37-75)
[2017-04-27 09:20] LABS: PLATELET MORPHOLOGY PLATELETS NORMAL; rbc morphology (normal/abnorm) ABNORMAL (NORMAL)
[2017-04-27 09:21] LABS: ovalocyte/elliptocyte 1+
[2017-04-27 10:07] VITALS: BP 124/59
[2017-04-27 13:36] VITALS: BP 133/62
[2017-04-27 18:06] VITALS: BP 142/72
[2017-04-27 21:26] VITALS: BP 142/67
[2017-04-28 04:55] VITALS: BP 148/70
[2017-04-28 06:35] LABS: BASOPHIL % 0.2 % (0-2); PLATELET COUNT 147 x10^3mcL (130-400); RED CELL DISTRIBUTION WIDTH 12.9 % (11.5-14.5)
[2017-04-28 06:49] LABS: CALCIUM 8.3 mg/dL (8.5-10.1); CARBON DIOXIDE 20.2 mmol/L (21-32); CHLORIDE SERUM 103 mmol/L (98-107); CREATININE SERUM 0.7 mg/dL (0.6-1.0); GLUCOSE SERUM 154 mg/dL (74-106); POTASSIUM SERUM 3.7 mmol/L (3.5-5.1); SODIUM SERUM 136 mmol/L (136-145)
[2017-04-28 10:40] VITALS: BP 152/64
[2017-04-28] MEDS ORDERED: KEFLEX500 M1 PO (11:05)
[2017-04-28] MEDS ORDERED: LAC PO (11:06)
[2017-04-28] MEDS ORDERED: MEDDP PO (11:06)
[2017-04-28 11:58] VITALS: BP 152/64
== END 2017-04-28 14:20 | disposition home or self-care (01) | DRG 602 ==
LOC: ED 09:05 → DU 10:46
PROVIDERS: Emergency Medicine; Family Medicine; Family Medicine Sports Medicine
DX: L03.211 Cellulitis of face (principal); G93.41 Metabolic encephalopathy; N39.0 Urinary tract infection, site not specified; E87.1 Hypo-osmolality and hyponatremia; G30.9 Alzheimer's disease, unspecified; F02.80 Dementia in other diseases classified elsewhere, unspecified severity, without behavioral disturbance, psychotic disturbance, mood disturbance, and anxiety; E11.65 Type 2 diabetes mellitus with hyperglycemia; I10 Essential (primary) hypertension; F31.9 Bipolar disorder, unspecified; F41.9 Anxiety disorder, unspecified; E78.5 Hyperlipidemia, unspecified; Z68.24 Body mass index [BMI] 24.0-24.9, adult; Z86.73 Personal history of transient ischemic attack (TIA), and cerebral infarction without residual deficits
CPT/HCPCS: 82962; 83880; 84439; G0480; J0696; J3490; J7030; J7512; Q0092

== ENCOUNTER 2017-06-17 13:13 | Emergency (ER) | payer OTHER ==
[~2017-06-17] VITALS: Ht 157.5 cm; Wt 58.0 kg
[~2017-06-17 13:13] MED LIST changes: +KEFLEX500 M1 PO; +LAC PO; +MEDDP PO
[2017-06-17 13:46] VITALS: Ht 157.5 cm; Wt 58.0 kg
[2017-06-17 15:09] LABS: BASOPHIL % 0.3 % (0-2); PLATELET COUNT 229 x10^3mcL (130-400); RED CELL DISTRIBUTION WIDTH 13.8 % (11.5-14.5)
[2017-06-17 15:11] LABS: CALCIUM 9.5 mg/dL (8.5-10.1); CHLORIDE SERUM 99 mmol/L (98-107); CREATININE SERUM 0.9 mg/dL (0.6-1.0); GLUCOSE SERUM 175 mg/dL (74-106); POTASSIUM SERUM 3.5 mmol/L (3.5-5.1); SODIUM SERUM 140 mmol/L (136-145)
[2017-06-17 16:30] VITALS: BP 168/91
== END 2017-06-17 16:30 | disposition home or self-care (01) ==
LOC: ED 13:13
PROVIDERS: Emergency Medicine
DX: F43.0 Acute stress reaction (principal); I10 Essential (primary) hypertension; E11.9 Type 2 diabetes mellitus without complications; F03.90 Unspecified dementia, unspecified severity, without behavioral disturbance, psychotic disturbance, mood disturbance, and anxiety; Z88.5 Allergy status to narcotic agent
CPT/HCPCS: 36415

== ENCOUNTER 2017-06-18 10:26 | Emergency (ER) | payer OTHER ==
[~2017-06-18] VITALS: Ht 160 cm; Wt 57.6 kg
[2017-06-18 10:30] VITALS: Ht 160 cm; Wt 57.6 kg
[2017-06-18 11:43] VITALS: BP 147/79
== END 2017-06-18 11:54 | disposition home or self-care (01) ==
LOC: ED 10:26
DX: I10 Essential (primary) hypertension (principal); F03.90 Unspecified dementia, unspecified severity, without behavioral disturbance, psychotic disturbance, mood disturbance, and anxiety; E11.9 Type 2 diabetes mellitus without complications; F41.9 Anxiety disorder, unspecified; F32.9 Major depressive disorder, single episode, unspecified